=== PATIENT | female | born 2000 | race Caucasian/White ===

== ENCOUNTER → 2023-12-22 07:10 | Outpatient (REF) | payer OTHER, SELFPAY | LOC: HWRCS 07:10 | PROVIDERS: ATTENDING PHYSICIAN Internal Medicine Cardiovascular Disease; FAMILY PHYSICIAN Family Medicine | DX: M79.671 Pain in right foot (principal); M79.672 Pain in left foot; R60.0 Localized edema; I87.2 Venous insufficiency (chronic) (peripheral) | CPT/HCPCS: 93306 ==

== ENCOUNTER → 2024-02-03 07:03 | Outpatient (REF) | payer OTHER, SELFPAY | LOC: RAD 07:03 | PROVIDERS: ATTENDING PHYSICIAN Internal Medicine Cardiovascular Disease; FAMILY PHYSICIAN Family Medicine | DX: M79.671 Pain in right foot (principal); M79.672 Pain in left foot; I87.2 Venous insufficiency (chronic) (peripheral) | CPT/HCPCS: 93922; 93925; 93970 ==